=== PATIENT | female | born 1990 | race Caucasian/White ===

== ENCOUNTER → 2018-06-27 18:09 | Outpatient (CLI) | payer SELFPAY | PROVIDERS: PCP Family Medicine; Visit Provider Physician Assistant | DX: Z00.8 Encounter for other general examination (principal) ==

== ENCOUNTER → 2019-09-21 18:02 | Outpatient (CLI) | payer MEDICAID, SELFPAY | PROVIDERS: Visit Provider Nurse Practitioner Obstetrics & Gynecology | DX: N39.0 Urinary tract infection, site not specified (principal) | CPT/HCPCS: 87086; 87088; 87186 ==

== ENCOUNTER 2020-11-10 16:34 | Emergency (ER) | payer MEDICAID, SELFPAY ==
[2020-11-10] VITALS (7 sets, daily range): BP systolic 122–171; BP diastolic 77–108; PULSE 77–101; RESP 16–20; TEMP 37–37.7; O2SAT 95–99; BMI 33.9
--- NOTE | 2020-11-10 16:33 | ECG_ITS ---
APPROVED REPORT Exam: Resting ECG HR:96 bpm ECG Measurements Heart Rate [address] 172 P 41 QRSd 88 QRS 23 QT 350 T 18 QTc 442 Conclusion Normal sinus rhythm Left atrial abnormality Borderline ECG Electronically signed by : Zay Bhatt, 11/12/2020 15:22:45
--- NOTE | 2020-11-10 16:36 | XR_ITS ---
PROCEDURE INFORMATION: Exam: XR Chest Exam date and time: 11/10/2020 4:36 PM Age: 30 years old Clinical indication: Radiating; Patient HX: Chest pain and left shoulder pain TECHNIQUE: Imaging protocol: XR of the chest. Views: 2 views. COMPARISON: CR CXR CHEST(2 VIEWS-NOT PORTABLE) 12/05/2016 3:15 PM FINDINGS: Lungs: Unremarkable. No consolidation. Pleural spaces: Unremarkable. No pleural effusion. No pneumothorax. Heart/Mediastinum: Unremarkable. No cardiomegaly. Bones/joints: Unremarkable. IMPRESSION: No acute findings.
--- NOTE | 2020-11-10 16:42 | PC.NURSE ---
Blood sent to lab at this time
[2020-11-10 16:48] LABS: Basophils # 0.2 K/mm3 (0-0.2); Basophils % 1.5 % (0.1-2.0); Eosinophils # 0.7 K/mm3 (0.0-0.4); Eosinophils % 6.4 % (0.1-12.0); Hematocrit 44.4 % (37.0-47.0); Lymphocytes # 1.9 K/mm3 (0.7-4.5); Lymphocytes % 17.1 % (10-50); Mean Corpuscular HGB Conc 33.8 g/dL (31.8-35.4); Mean Corpuscular Hemoglobin 30.2 pg (27.0-31.2); Mean Corpuscular Volume 89.4 fl (81-99); Mean Platelet Volume 8.4 fl (7.4-10.4); Monocytes # 0.5 K/mm3 (0.1-1.0); Neutrophils # 7.9 K/mm3 (1.8-7.8); Neutrophils % 70.9 % (37.0-80.0); Platelet Count 315 K/mm3 (142-424); Red Blood Count 4.96 M/mm3 (4.20-5.40); Red Cell Distribution Width 14.2 % (11.5-17.5); White Blood Count 11.1 K/mm3 (4.8-10.8)
[2020-11-10 16:51] LABS: Chloride 104 mmol/L (98-107)
[2020-11-10 16:52] LABS: Potassium 3.9 mmoL/L (3.5-5.1); Sodium 141 mmol/L (136-145)
[2020-11-10 16:55] LABS: Anion Gap 10.9 mEq/L (5-15); Blood Urea Nitrogen 11 mg/dl (7-17); Calcium 9.9 mg/dl (8.4-10.2); Carbon Dioxide 30 mmol/L (22.0-30.0); Creatinine Clearance Estimated 113 mL/min (50-200); Estimated Glomerular Filt Rate 59 ml/min (>60); GFR (African American) 71 ML/MIN (>60); Glucose 127 mg/dl (74-100)
[2020-11-10 17:08] LABS: Troponin I < 0.01 ng/ml (0.00-0.034)
--- NOTE | 2020-11-10 17:27 | PC.NURSE ---
Pt returned from x-ray
--- NOTE | 2020-11-10 17:54 | HMH.EDCP ---
ED Disposition Clinical Impression: Lightheadedness Disposition: Home, Self-Care Condition on Discharge: Good Instructions: DI for Dizziness-Nonvertigo Referrals: Provider,Referral, [Primary Care Provider] - - Critical Care Critical Care Time: No Attestation: On 11/10/20, the high probability of a clinically significant, sudden or life threatening deterioration of the following system(s) required my full and direct attention, intervention and personal management. The time I documented below is in addition to time spent performing reported procedures but includes the following listed in this critical care notation. Medical Decision Making - Medical Records Medical records reviewed: Yes: I reviewed the patient's medical records. - Porfirio Inquiry Pt receiving controlled substance: No Vital Signs: 11/10/20 16:34 11/10/20 16:39 11/10/20 17:00 Temperature 99.8 F H Temperature Source Oral Pulse Rate 84 86 Pulse Rate [Left Radial] 101 H Respiratory Rate 20 Blood Pressure 145/84 H 146/95 H Blood Pressure [Right Arm] 171/108 H Blood Pressure Mean 124 112 Blood Pressure Mean [Right Arm] 129 Blood Pressure Source [Right Arm] Automatic Cuff Blood Pressure Position [Right Arm] Sitting 02 Sat by Pulse Oximetry 99 98 98 Oxygen Delivery Method Room Air 11/10/20 17:30 11/10/20 18:00 11/10/20 18:30 Temperature Temperature Source Pulse Rate 84 82 77 Pulse Rate [Left Radial] Respiratory Rate Blood Pressure 129/77 128/84 122/79 Blood Pressure [Right Arm] Blood Pressure Mean 94 99 101 Blood Pressure Mean [Right Arm] Blood Pressure Source [Right Arm] Blood Pressure Position [Right Arm] 02 Sat by Pulse Oximetry 98 95 96 Oxygen Delivery Method - Lab Data Lab Results 11/10/20 16:38: WBC 11.1 H, RBC 4.96, Hgb 15.0, Hct 44.4, MCV 89.4, MCH 30.2, MCHC 33.8, RDW 14.2, Plt Count 315, MPV 8.4, Neut % (Auto) 70.9, Lymph % (Auto) 17.1, Crawford % (Auto) 4.0, Eos % (Auto) 6.4, Baso % (Auto) 1.5, Neut # (Auto) 7.9 H, Lymph # (Auto) 1.9, Crawford # (Auto) 0.5, Eos # (Auto) 0.7 H, Baso # (Auto) 0.2 11/10/20 16:38: Sodium 141, Potassium 3.9, Chloride 104, Carbon Dioxide 30, Anion Gap 10.9, BUN 11, Creatinine 1.10 H, Estimated Creat Clear 113, Estimated GFR 59, Est GFR ( Amer) 71, Glucose 127 H, Calcium 9.9, Troponin I < 0.01 Result diagrams: 11/10/20 16:38 11/10/20 16:38 Orders (Tests/Meds): ORDERS Category Date Time Status Troponin I Q3H Lab 11/10/20 19:45 Ordered Troponin I Q3H Lab 11/10/20 22:45 Ordered - Radiology Data #1 Image(s): Chest Image Reviewed: Yes I reviewed the patient's radiology results, Yes I reviewed the patient's radiology image, Yes I have reviewed radiologist's interpretation Preliminary Findings: Normal/NAD - ECG Data Tracing #1 No ventricular rate at 96 bpm, WI interval 172 ms, normal QTC. Sinus rhythm with no specific ST changes ECG initial impression date: 11/10/20 ECG initial impression time: 16:33 - Reevaluation(s) Time: 18:38 Reevaluation #1: On reevaluation, patient is feeling much better. Repeat neurologic exam is normal. Patient symptoms are consistent with near syncope. Patient needs follow-up with PCP. Given strict return precautions. Verbalized understanding. Medical Decision Narrative: 30-year-old female presented to the emergency department with some dizziness. Patient has normal neurologic exam at this time. Is been no seizure-like activity. Work-up will be initiated. Chest Pain HPI - General Chief Complaint: Chest Pain Stated Complaint: chest pain Time Seen by Provider: 11/10/20 16:40 Mode of Arrival: Ambulatory Limitations: No Limitations Description of Symptoms (Recalled from ER Triage Doc. by RN): c/o dizziness and chest pain. States that she had dizziness a month ago and it got better but it is back with a her feeling that her heart is racing and fingers are tingling. - History of Pre
== END 2020-11-10 19:12 | disposition home or self-care (01) ==
PROVIDERS: Emergency Provider Emergency Medicine
DX: R07.9 Chest pain, unspecified (principal); R42 Dizziness and giddiness
CPT/HCPCS: 71046; 80048; 84484; 85025; 93005; 99283

== ENCOUNTER → 2021-05-03 16:22 | Outpatient (CLI) | payer MEDICAID, SELFPAY | PROVIDERS: Visit Provider Nurse Practitioner | DX: U07.1 COVID-19 (principal) | CPT/HCPCS: C9803; U0003; U0005 ==

== ENCOUNTER 2021-05-06 17:13 | Emergency (ER) | payer MEDICAID, SELFPAY ==
[2021-05-06 17:14] VITALS: BP 158/96; PULSE 113; RESP 14; TEMP 36.9; O2SAT 98; BMI 33.9
--- NOTE | 2021-05-06 18:58 | HMH.EDGENADL ---
ED Disposition <RubinayordykoltonCarmen - Last Filed: 05/06/21 21:51> Condition on Discharge: Good - Critical Care Critical Care Time: No <Effie Telles - Last Filed: 05/06/21 22:15> Clinical Impression: COVID-19 Headache Qualifiers: Headache type: tension-type Headache chronicity pattern: acute headache Intractability: not intractable Qualified Code(s): G44.209 - Tension-type headache, unspecified, not intractable Nausea & vomiting Qualifiers: Vomiting type: unspecified Qualified Code(s): R11.2 - Nausea with vomiting, unspecified Disposition: Home, Self-Care Prescriptions: Ondansetron [Zofran 4mg ODT] 4 mg PO BIDP PRN #10 tab PRN Reason: Nausea Transmission Status: Pending to [id number] Referrals: Kevin Terrell [Primary Care Provider] - Attestation: On 05/06/21, the high probability of a clinically significant, sudden or life threatening deterioration of the following system(s) required my full and direct attention, intervention and personal management. The time I documented below is in addition to time spent performing reported procedures but includes the following listed in this critical care notation. Medical Decision Making - Medical Records Medical records reviewed: Yes: I reviewed the patient's medical records. - Porfirio Inquiry Pt receiving controlled substance: No - Lab Data Lab results reviewed: Yes: I reviewed the patient's lab results. Result diagrams: 05/06/21 18:44 05/06/21 18:44 <RubinaCarmen zacarias - Last Filed: 05/06/21 21:51> - Lab Data Result diagrams: 05/06/21 18:44 05/06/21 18:44 <Effie Telles - Last Filed: 05/06/21 22:15> Vital Signs: 05/06/21 17:14 05/06/21 19:30 05/06/21 20:00 Temperature 98.5 F Temperature Source Oral Pulse Rate 92 H 89 Pulse Rate [Right Radial] 113 H Respiratory Rate 14 Blood Pressure 146/82 H 142/88 H Blood Pressure [Right Arm] 158/96 H Blood Pressure Mean [Right Arm] 116 Blood Pressure Source [Right Arm] Automatic Cuff Blood Pressure Position [Right Arm] Sitting 02 Sat by Pulse Oximetry 98 100 100 Oxygen Delivery Method Room Air Room Air Room Air 05/06/21 21:00 Temperature Temperature Source Pulse Rate 98 H Pulse Rate [Right Radial] Respiratory Rate Blood Pressure 145/88 H Blood Pressure [Right Arm] Blood Pressure Mean [Right Arm] Blood Pressure Source [Right Arm] Blood Pressure Position [Right Arm] 02 Sat by Pulse Oximetry 99 Oxygen Delivery Method Room Air - Lab Data Lab Results 05/06/21 18:44: WBC 5.4, RBC 4.53, Hgb 13.7, Hct 42.6, MCV 94.0, MCH 30.3, MCHC 32.2, RDW 14.4, Plt Count 213, MPV 8.6, Neut % (Auto) 81.7 H, Lymph % (Auto) 6.6 L, Johnston % (Auto) 8.5, Eos % (Auto) 1.3, Baso % (Auto) 2.0, Neut # (Auto) 4.4, Lymph # (Auto) 0.4 L, Johnston # (Auto) 0.5, Eos # (Auto) 0.1, Baso # (Auto) 0.1 05/06/21 18:44: Sodium 137, Potassium 3.5, Chloride 107, Carbon Dioxide 23, Anion Gap 10.5, BUN 8, Creatinine 0.90, Estimated Creat Clear 137, Estimated GFR 74, Est GFR ( Amer) 89, Glucose 85, Calcium 9.0, Magnesium 1.7, Total Bilirubin 0.2, AST 27, ALT 22, Alkaline Phosphatase 37 L, Total Protein 6.6, Albumin 4.0, Globulin 2.6, Albumin/Globulin Ratio 1.5 05/06/21 19:22: Urine Color Yellow, Urine Appearance Clear, Urine pH 6.0, Ur Specific [place] >= 1.030, Urine Protein Trace, Urine Glucose (UA) Negative, Urine Ketones Negative, Urine Blood Negative, Urine Nitrate Negative, Urine Bilirubin 1+ A, Urine Urobilinogen 0.2, Ur Leukocyte Esterase Negative, Urine RBC None, Urine WBC None, Ur Squamous Epith Cells 3-5, Urine Bacteria Trace Orders (Tests/Meds): ED MEDICATIONS Generic Name Dose Route Start Last Admin Trade Name Freq PRN Reason Stop Dose Admin Lactated Ringer's 500 mls @ 999 mls/hr 05/06/21 18:15 05/06/21 18:58 Lactated Ringer's 1000 Ml Bag IV 05/06/21 18:45 999 mls/hr .Q31M REGINALD Administration Discontinued Medications Generic Name Dose Route Start Last Admin Trade Na
[2021-05-06 19:06] LABS: Chloride 107 mmol/L (98-107); Potassium 3.5 mmoL/L (3.5-5.1); Sodium 137 mmol/L (136-145)
[2021-05-06 19:08] LABS: Alanine Aminotransferase 22 U/L (12-78); Aspartate Amino Transferase 27 U/L (14-36); Basophils # 0.1 K/mm3 (0-0.2); Blood Urea Nitrogen 8 mg/dl (7-17); Creatinine Clearance Estimated 137 mL/min (50-200); Eosinophils # 0.1 K/mm3 (0.0-0.4); Eosinophils % 1.3 % (0.1-12.0); Estimated Glomerular Filt Rate 74 ml/min (>60); GFR (African American) 89 ML/MIN (>60); Hematocrit 42.6 % (37.0-47.0); Hemoglobin 13.7 g/dL (12.2-16.2); Lymphocytes # 0.4 K/mm3 (0.7-4.5); Lymphocytes % 6.6 % (10-50); Mean Corpuscular HGB Conc 32.2 g/dL (31.8-35.4); Mean Corpuscular Hemoglobin 30.3 pg (27.0-31.2); Mean Platelet Volume 8.6 fl (7.4-10.4); Monocytes # 0.5 K/mm3 (0.1-1.0); Monocytes % 8.5 % (1.7-9.3); Neutrophils # 4.4 K/mm3 (1.8-7.8); Neutrophils % 81.7 % (37.0-80.0); Platelet Count 213 K/mm3 (142-424); Red Blood Count 4.53 M/mm3 (4.20-5.40); Red Cell Distribution Width 14.4 % (11.5-17.5); White Blood Count 5.4 K/mm3 (4.8-10.8)
[2021-05-06 19:09] LABS: Albumin/Globulin Ratio 1.5 (1.1-1.8); Alkaline Phosphatase 37 U/L (38-126); Anion Gap 10.5 mEq/L (5-15); Bilirubin,Total 0.2 mg/dl (0.2-1.3); Carbon Dioxide 23 mmol/L (22.0-30.0); Globulin 2.6 g/dL (1.3-3.2); Glucose 85 mg/dl (74-100); Magnesium 1.7 mg/dl (1.6-2.3); Total Protein,Serum 6.6 g/dl (6.3-8.2)
[2021-05-06 19:30] VITALS: BP 146/82; PULSE 92; O2SAT 100
[2021-05-06 19:32] LABS: Microscopic, Urine URINE MICROSCOPIC (MICROSCOPIC)
[2021-05-06 19:34] LABS: Appearance,Urine CLEAR (Clear); Bilirubin,Urine 1+ (Negative); Blood, Urine Negative (Negative); Color,Urine YELLOW (Yellow); Glucose,Urine (UA) Negative (Negative); Ketones,Urine Negative (Negative); Leukocyte Esterase,Urine Negative (Negative); Nitrate,Urine Negative (Negative); Protein,Urine TRACE (Negative); Specific Gravity, Urine >= 1.030 (1.005-1.030); Urobilinogen,Urine 0.2 EU/dl (0.2)
[2021-05-06 19:47] LABS: Bacteria,Urine Trace /lpf
[2021-05-06 20:00] VITALS: BP 142/88; PULSE 89; O2SAT 100
[2021-05-06 21:00] VITALS: BP 145/88; PULSE 98; O2SAT 99
[2021-05-06 22:25] VITALS: BP 134/78; PULSE 95; RESP 16; TEMP 37.2; O2SAT 100
== END 2021-05-06 22:30 | disposition home or self-care (01) ==
PROVIDERS: Emergency Provider Emergency Medicine; PCP Internal Medicine
DX: O98.511 Other viral diseases complicating pregnancy, first trimester (principal); U07.1 COVID-19
CPT/HCPCS: 80053; 81001; 83735; 85025; 96365; 96376; 99282

== ENCOUNTER → 2021-06-10 08:05 | Outpatient (CLI) | payer MEDICAID, SELFPAY ==
--- NOTE | 2021-06-10 08:10 | MR_ITS ---
FINAL REPORT CLINICAL HISTORY: pt is 13 weeks with migraines and dizziness. she states an off feeling and unsteady balance. FINDINGS: MR BRAIN WITHOUT CONTRAST Multiplanar MR imaging of the brain was performed without contrast. [There is no evidence of intracranial hemorrhage or mass.] [ The ventricular size is normal.] [There is no evidence of shift of the midline structures.] [ No area of restricted diffusion is identified.] [ The posterior fossa and brainstem have an unremarkable appearance.] [Normal major vessel vascular flow voids are seen.] [ ] IMPRESSION: [Unremarkable brain with no focal abnormality identified.] Reviewed, Interpreted and Dictated by Francois Aparicio MD Transcribed by Minnie Lindsey Authenticated by Francois Aparicio MD on 06/12/2021 09:56:05 AM [facility]
== END ==
PROVIDERS: PCP Internal Medicine; Visit Provider Specialist
DX: G43.709 Chronic migraine without aura, not intractable, without status migrainosus (principal); R11.2 Nausea with vomiting, unspecified; R42 Dizziness and giddiness
CPT/HCPCS: 70551

== ENCOUNTER 2021-06-27 16:49 | Outpatient (RCR) | payer MEDICAID, SELFPAY ==
--- NOTE | 2021-06-27 18:00 | HMH.PTOPEV ---
PT Outpatient Evaluation Rehab PT Outpatient Evaluation Start: 06/27/21 17:39 Freq: Status: Active Protocol: Document 06/27/21 17:39 ERINN (Rec: 06/27/21 17:58 ERINN [id number]) Electronically Signed By Jamison Mccartney, PT 06/27/21 17:39 Outpatient Therapy Subjective History Subjective History Patient is a 31 year old female presenting to outpatient PT with reports of chronic cervical spine pain with associated migraines starting 09/2020. Most recent imaging negative. Patient reports symptoms occurr daily and intermittently. She reports associated dizziness and seeing spots with symptom onset. No other comorbidities to report. Chief Complaint Pain Symptom Type Throb,Sharp Symptoms Relieved By Rest/Positioning,Heat,OTC Meds Prior Functional Limitations None Current Functional Limitations Housework,Driving,Sitting Symptom Description Intermittent Level of pain today (0-10) 0 Pain scale - at its best (0-10) 0 Pain scale - at its worst (0-10) 5 Cervical Eval Palpation Cervical Muscles R Suboccipital,L Suboccipital, R Upper Trapezius,L Upper Trapezius Cervical/Thoracic Palpation Findings Tenderness Posture Head/C-Spine Posture Sitting Position C-Spine Flattened Head/C-Spine Posture Standing Position C-Spine Flattened Flexibility Deficits Upper Trapezius Muscle Length (R) Moderate Tightness,(L) Moderate Tightness Passive Joint Mobility Cervical PIVM WNL: R OA L OA R AA L AA R C2/3 L C2/3 R C3/4 L C3/4 R C4/5 L C4/5 R C5/6 L C5/6 R C6/7 L C6/7 R C7/T1 L C7/T1 AROM Cervical Spine Extension Active Range of WNL Motion (degrees) Cervical Spine Flexion Active Range of WNL Motion (degrees) Cervical Spine Right Lateral Flexion 30 Active Range of Motion (degrees)
== END 2021-06-27 16:50 | disposition home or self-care (01) ==
LOC: PT 16:49
PROVIDERS: PCP Internal Medicine; Visit Provider Specialist
DX: R51.9 Headache, unspecified (principal); R42 Dizziness and giddiness
CPT/HCPCS: 97163

== ENCOUNTER → 2021-07-18 10:42 | Outpatient (CLI) | payer MEDICAID, SELFPAY ==
[2021-07-18 11:17] LABS: Basophils # 0.1 K/mm3 (0-0.2); Basophils % 0.4 % (0.1-2.0); Eosinophils # 0.1 K/mm3 (0.0-0.4); Eosinophils % 1.2 % (0.1-12.0); Hematocrit 41.1 % (37.0-47.0); Hemoglobin 13.6 g/dL (12.2-16.2); Lymphocytes # 1.5 K/mm3 (0.7-4.5); Mean Corpuscular HGB Conc 33.2 g/dL (31.8-35.4); Mean Corpuscular Hemoglobin 31.2 pg (27.0-31.2); Mean Platelet Volume 9.2 fl (7.4-10.4); Monocytes # 0.4 K/mm3 (0.1-1.0); Monocytes % 3.5 % (1.7-9.3); Neutrophils # 8.9 K/mm3 (1.8-7.8); Neutrophils % 80.9 % (37.0-80.0); Platelet Count 263 K/mm3 (142-424); Red Blood Count 4.37 M/mm3 (4.20-5.40); Red Cell Distribution Width 14.2 % (11.5-17.5)
[2021-07-19 08:23] LABS: HIV Screen 4th Generation wRfx Non Reactive (Non Reactive)
[2021-07-19 09:14] LABS: HSV 1 IgG, Type Spec <0.91 index (0.00-0.90); HSV 2 IgG, Type Spec <0.91 index (0.00-0.90); Rubella Antibodies, IgG <0.90 index (Immune >0.99)
[2021-07-19 10:13] LABS: Hepatitis B Surface Antigen Negative (Negative); Hepatitis C Antibody 0.1 s/co ratio (0.0-0.9)
[2021-07-19 13:49] LABS: Rapid Plasma Reagin Ab Titer Non Reactive (NonRea<1:1)
== END ==
PROVIDERS: Visit Provider Nurse Practitioner Obstetrics & Gynecology
DX: Z34.90 Encounter for supervision of normal pregnancy, unspecified, unspecified trimester (principal)
CPT/HCPCS: 36415; 85025; 86592; 86695; 86703; 86762; 86790; 86850; 87340; 87380; G0432

== ENCOUNTER → 2021-08-01 13:51 | Outpatient (CLI) | payer MEDICAID, SELFPAY ==
--- NOTE | 2021-08-01 13:54 | US_ITS ---
FINAL REPORT CLINICAL HISTORY: 20 weeks gestation FINDINGS: There is a single live intrauterine gestation. Presentation is breech. The cervix is closed and measures 3.5 cm. Placenta is posterior grade 1. movement is noted. Heart rate is 142 beats per minute. Three-vessel cord with satisfactory umbilical cord insertion. MEASUREMENTS: ULTRASOUND AGE: 20 weeks 0 days. GESTATION AGE: 20 weeks 4 days. ESTIMATED WEIGHT: 337 g GROWTH PERCENTILE: 25% % BPD: 4.52 cm consistent with 19 weeks 5 days. OFD: 5.86 cm consistent with 20 weeks 1 day. HC: 16.44 cm consistent with 19 weeks 2 days. AC: 15.31 cm consistent with 20 weeks 4 days. FL: 3.23 cm consistent with 20 weeks 1 days. CEREBELLUM: 2.04 cm consistent with 20 weeks 5 days. HUMERUS: 3.13 cm consistent with 20 weeks 3 days. HC/AC: 1.07 CI: 77% FL/BPD: 71% FL/AC: 21% IMPRESSION: No gross anomalies. Reviewed, Interpreted and Dictated by Francois Aparicio MD Transcribed by Nunu Toledo Authenticated by Francois Aparicio MD on 08/02/2021 10:12:[address] [facility]
== END ==
PROVIDERS: PCP Internal Medicine; Visit Provider Nurse Practitioner Obstetrics & Gynecology
DX: Z36.0 Encounter for antenatal screening for chromosomal anomalies (principal); Z3A.20 20 weeks gestation of pregnancy
CPT/HCPCS: 76811

== ENCOUNTER 2021-11-18 00:04 | Outpatient (CLI) | payer MEDICAID, SELFPAY ==
[2021-11-18 00:16] VITALS: BMI 36.4
[2021-11-18 00:17] VITALS: BP 139/73; PULSE 97; RESP 18; TEMP 36.5; O2SAT 95; BMI 36.4
[2021-11-18 00:25] LABS: Microscopic, Urine URINE MICROSCOPIC (MICROSCOPIC)
[2021-11-18 00:27] LABS: Appearance,Urine CLEAR (Clear); Bilirubin,Urine Negative (Negative); Blood, Urine Negative (Negative); Color,Urine YELLOW (Yellow); Glucose,Urine (UA) Negative (Negative); Ketones,Urine Negative (Negative); Leukocyte Esterase,Urine Negative (Negative); Nitrate,Urine Negative (Negative); PH,Urine 6.5 (5.0-8.5); Protein,Urine Negative (Negative); Urobilinogen,Urine 0.2 EU/dl (0.2)
[2021-11-18 00:33] LABS: Bacteria,Urine 1+ /lpf; RBC,Urine Occasional #/hpf (0-3)
[2021-11-18 00:39] LABS: Barbiturates Screen,Urine Negative ng/ml (<200); Benzodiazepines Screen,Urine Negative ng/ml (<200)
[2021-11-18 00:40] LABS: Amphetamine/Metha Screen,Urine Negative ng/ml (<1000); Cannabinoid Screen,Urine Negative ng/ml (<50)
[2021-11-18 00:41] LABS: Cocaine Screen,Urine Negative ng/ml (<300)
[2021-11-18 00:42] LABS: Methadone Screen,Urine Negative ng/ml (<300); Opiate Screen,Urine Negative ng/ml (<300)
[2021-11-18 00:43] LABS: Phencyclidine Screen,Urine Negative ng/ml (<25)
== END 2021-11-18 05:00 | disposition home or self-care (01) ==
LOC: OBOUT 00:05 → OB 00:07
PROVIDERS: PCP Internal Medicine; Visit Provider Nurse Practitioner Obstetrics & Gynecology
DX: O47.03 False labor before 37 completed weeks of gestation, third trimester (principal); Z3A.36 36 weeks gestation of pregnancy
CPT/HCPCS: 59025; 80305; 81001; 96365; 96366; G0463

== ENCOUNTER → 2021-11-21 06:08 | Outpatient (CLI) | payer MEDICAID, SELFPAY | PROVIDERS: Visit Provider Nurse Practitioner Obstetrics & Gynecology | DX: Z34.90 Encounter for supervision of normal pregnancy, unspecified, unspecified trimester (principal) | CPT/HCPCS: 86403 ==

== ENCOUNTER → 2021-11-21 08:08 | Outpatient (CLI) | payer MEDICAID, SELFPAY ==
[2021-11-21 09:12] LABS: Basophils # 0.1 K/mm3 (0-0.2); Basophils % 0.6 % (0.1-2.0); Eosinophils # 0.3 K/mm3 (0.0-0.4); Hemoglobin 12.3 g/dL (12.2-16.2); Lymphocytes # 2.1 K/mm3 (0.7-4.5); Lymphocytes % 15.5 % (10-50); Mean Corpuscular HGB Conc 32.4 g/dL (31.8-35.4); Mean Corpuscular Hemoglobin 31.2 pg (27.0-31.2); Mean Corpuscular Volume 96.1 fl (81-99); Mean Platelet Volume 9.2 fl (7.4-10.4); Monocytes % 7.2 % (1.7-9.3); Neutrophils # 10.2 K/mm3 (1.8-7.8); Neutrophils % 74.7 % (37.0-80.0); Platelet Count 364 K/mm3 (142-424); Red Blood Count 3.95 M/mm3 (4.20-5.40); Red Cell Distribution Width 13.7 % (11.5-17.5); White Blood Count 13.6 K/mm3 (4.8-10.8)
[2021-11-21 09:18] LABS: D-Dimer 1.34 ug/mL (0.0-0.5)
[2021-11-21 09:51] LABS: Activated Partial Thrombo Time 23.5 seconds (22.8-30.6); Fibrinogen 444 mg/dL (229.9-363.5); INR 0.89 (0.9-1.1); Prothrombin Time 10.1 seconds (10.1-12.5)
[2021-11-21 10:33] LABS: Alanine Aminotransferase 11 U/L (12-78); Anion Gap 10.5 mEq/L (5-15); Aspartate Amino Transferase 19 U/L (14-36); Blood Urea Nitrogen 7 mg/dl (7-17); Calcium 9.7 mg/dl (8.4-10.2); Carbon Dioxide 22 mmol/L (22.0-30.0); Chloride 106 mmol/L (98-107); Estimated Glomerular Filt Rate 117 ml/min (>60); GFR (African American) 142 ML/MIN (>60); Glucose 84 mg/dl (74-100); Potassium 4.5 mmoL/L (3.5-5.1); Sodium 134 mmol/L (136-145); Uric Acid 4.4 mg/dl (2.5-6.2)
== END ==
PROVIDERS: PCP Internal Medicine; Visit Provider Nurse Practitioner Obstetrics & Gynecology
DX: Z34.90 Encounter for supervision of normal pregnancy, unspecified, unspecified trimester (principal)
CPT/HCPCS: 80048; 84450; 84460; 84550; 85025; 85378; 85384; 85610; 85730

== ENCOUNTER → 2021-11-22 16:17 | Outpatient (CLI) | payer MEDICAID, SELFPAY ==
[2021-11-22 17:59] LABS: Collection Time,Urine 24 hours; Total Volume,Urine 1600 mL (600-1600)
[2021-11-22 18:11] LABS: Creatinine 24 Hour,Urine 1648 mg/24hr (630-2500); Total Protein 24 Hour,Urine 288 mg/24 hr (40-90)
[2021-11-22 18:15] LABS: Creatinine,Urine Random 103 mg/dL (Not Estab.)
[2021-11-22 20:15] LABS: Patient Height,Urine 62 inches; Patient Weight,Urine 225 lbs
[2021-11-22 20:29] LABS: Creatinine Clearance Urine 190.7 mL/min (25-115)
== END ==
PROVIDERS: PCP Internal Medicine; Visit Provider Nurse Practitioner Obstetrics & Gynecology
DX: Z34.90 Encounter for supervision of normal pregnancy, unspecified, unspecified trimester (principal)
CPT/HCPCS: 82575; 84155

== ENCOUNTER 2021-11-25 18:59 | Inpatient (IN) | payer MEDICAID, SELFPAY ==
[2021-11-25 18:30] VITALS: BP 156/92; PULSE 121; RESP 19; TEMP 37.1; O2SAT 97; BMI 35.8
[2021-11-25 18:39] LABS: Microscopic, Urine URINE MICROSCOPIC (MICROSCOPIC)
[2021-11-25 18:42] LABS: Appearance,Urine CLEAR (Clear); Blood, Urine Negative (Negative); Color,Urine DK YELLOW (Yellow); Glucose,Urine (UA) Negative (Negative); Ketones,Urine 1+ (Negative); Leukocyte Esterase,Urine Negative (Negative); Nitrate,Urine Negative (Negative); Protein,Urine TRACE (Negative); Specific Gravity, Urine 1.025 (1.005-1.030)
[2021-11-25 18:43] LABS: Bilirubin,Urine 1+ (Negative)
[2021-11-25 18:53] LABS: Bacteria,Urine 1+ /lpf
[2021-11-25 18:54] LABS: Amphetamine/Metha Screen,Urine Negative ng/ml (<1000); Barbiturates Screen,Urine Negative ng/ml (<200)
[2021-11-25 18:55] LABS: Benzodiazepines Screen,Urine Negative ng/ml (<200)
[2021-11-25 18:56] LABS: Cannabinoid Screen,Urine Negative ng/ml (<50); Cocaine Screen,Urine Negative ng/ml (<300)
[2021-11-25 18:57] LABS: Methadone Screen,Urine Negative ng/ml (<300)
[2021-11-25 18:58] LABS: Opiate Screen,Urine Negative ng/ml (<300); Phencyclidine Screen,Urine Negative ng/ml (<25)
--- NOTE | 2021-11-25 19:21 | HMH.OBAPHP ---
OB - H&P: HPI Antepartum - History of Present Illness Chief complaint: Headache, vision changes, contractions History of present illness: Mrs Elsie Tapia is a 31 yo at 37w0d, based on first trimester ultrasound, who presents to [facility] for regular contractions, headache and vision changes. She states headache started last night and was worse this morning. She took Tylenol this morning with no relief. She reports seeing spots. She states contractions started about 2 hours ago and have increased in frequency. Reports good movement. Denies leakage of fluid and vaginal bleeding. - History of Present Criteria for establishing EDC:: based on 1st trimester US only care: good care Ultrasounds: normal 1st trimester US, normal mid trimester US Obstetrical complications: preeclampsia, other (Chronic hypertension) - Labs Blood type: O (+) positive Rubella: nonimmune RPR/VDRL: nonreactive GBS status: negative HBsAG: negative [facility] History I have reviewed the patient's past medical history: Yes Medical History: Reports:: Anxiety, Hypertension, Migraine *Have you ever received a pneumonia vaccine?: No *Have you received a flu vaccine this season?: No Laterality Cases: Bilateral: Myringotomy (Ear Tubes) Other Surgeries: Yes: No Previous Surgery. No: Amputation: No Fractures: No - *Social History Smoking Status: Never smoker Alcohol Intake: never Alcohol Intake Frequency:: other Substance Use Type: denies use *Occupational Status:: employed Housing: house Household Members: children *Travel in the last 8 weeks: None Family Hx:: Diabetes : 3 Para: 2 Review of Systems - Review of Systems Review of systems:: pertinent systems reviewed and negative unless documented below - Constitutional Reports headache(s) - Eyes Reports change in vision - *Neurologic Reports headache(s), Reports other visual disturbances Meds Home Medications Medication Instructions Recorded Confirmed Type vit 122-ferrous fumarate tab PO 06/07/21 11/23/21 History 27 mg iron-folic acid 800 mcg tablet ferrous sulfate 325 mg (65 mg 325 mg PO DAILY #30 tab 07/18/21 11/23/21 Rx iron) tablet labetalol 100 mg tablet 100 mg PO BID #120 tab 07/18/21 11/23/21 Rx ondansetron 4 mg disintegrating 4 mg PO Q6H PRN #30 tab 07/18/21 11/23/21 Rx tablet hydroxyzine pamoate 25 mg capsule 25 mg PO TID #90 cap 09/12/21 11/23/21 Rx terconazole 0.8 % vaginal cream 1 appful VG HS 3 Days #20 g 11/06/21 11/23/21 Rx qhjiebndmt-ogtzvpqsgqoxl-jsyfnozd 1 cap PO Q12HP PRN #20 cap 11/23/21 11/23/21 Rx 50 mg-300 mg-40 mg capsule Allergies Allergy/AdvReac Type Severity Reaction Status Date / Time No Known Allergies Allergy Verified 11/23/21 10:18 OB - H&P: Exam - Physical Exam Vital signs: Temp Pulse Resp BP Pulse Ox 98.8 F 121 H 19 156/92 H 97 11/25/21 18:30 11/25/21 18:30 11/25/21 18:30 11/25/21 18:30 11/25/21 18:30 - Constitutional no acute distress - Routine HEENT Exam Head: Present: normocephalic Eye: Absent: conjunctivae pink ENT: Present: mucous membranes moist - Routine Respiratory Exam Present: CTA bilaterally - Routine Cardiovascular Exam Present: RRR - Routine Abdominal Exam Present: soft (Gravid). Absent: tenderness - Routine Extremities Exam Present: full ROM. Absent: edema, calf tenderness - Detailed Labor and Delivery Exam Dilation (cm): 2 Effacement (%): 40 Cervix position: anterior station: -3 Consistency: medium Membranes: artificially ruptured (with amnihoook at 1952, clear fuid noted) Amniotic fluid: clear Baseline heart rate: 140 monitor accelerations: Present monitor decelerations: Variable FPC variability: Moderate (11-25) Tachysystole: No OB - Results - Labs Labs: Urine 11/25/21 Range/Units 18:10 Urine Color Dk yellow (Yellow) Urine Appearanc
[2021-11-25 19:55] LABS: Basophils # 0.1 K/mm3 (0-0.2); Basophils % 0.4 % (0.1-2.0); Eosinophils # 0.2 K/mm3 (0.0-0.4); Eosinophils % 1.3 % (0.1-12.0); Hematocrit 39.1 % (37.0-47.0); Hemoglobin 12.7 g/dL (12.2-16.2); Lymphocytes # 2.4 K/mm3 (0.7-4.5); Mean Corpuscular HGB Conc 32.5 g/dL (31.8-35.4); Mean Corpuscular Hemoglobin 31.4 pg (27.0-31.2); Mean Corpuscular Volume 96.8 fl (81-99); Monocytes # 0.7 K/mm3 (0.1-1.0); Monocytes % 4.6 % (1.7-9.3); Neutrophils # 12.4 K/mm3 (1.8-7.8); Neutrophils % 78.7 % (37.0-80.0); Platelet Count 363 K/mm3 (142-424); Red Blood Count 4.04 M/mm3 (4.20-5.40); Red Cell Distribution Width 13.7 % (11.5-17.5); White Blood Count 15.7 K/mm3 (4.8-10.8)
[2021-11-25 19:56] LABS: Coronavirus 19, PCR Not Detected (NotDetected); Influenza A, PCR Not Detected (NotDetected); Influenza B, PCR Not Detected (NotDetected)
[2021-11-25 19:58] LABS: MANUAL DIFFERENTIAL MANUAL DIFFERENTIAL (MANUAL DIFF)
[2021-11-25 20:04] LABS: Chloride 104 mmol/L (98-107); Potassium 3.6 mmoL/L (3.5-5.1); Sodium 134 mmol/L (136-145)
[2021-11-25 20:06] LABS: Blood Urea Nitrogen 8 mg/dl (7-17); Creatinine Clearance Estimated 187 mL/min (50-200); Estimated Glomerular Filt Rate 98 ml/min (>60)
[2021-11-25 20:07] LABS: Alanine Aminotransferase 19 U/L (12-78); Albumin/Globulin Ratio 1.3 (1.1-1.8); Alkaline Phosphatase 148 U/L (38-126); Anion Gap 12.6 mEq/L (5-15); Aspartate Amino Transferase 24 U/L (14-36); Bilirubin,Total 0.3 mg/dl (0.2-1.3); Calcium 10.2 mg/dl (8.4-10.2); Carbon Dioxide 21 mmol/L (22.0-30.0); GFR (African American) 119 ML/MIN (>60); Globulin 3.1 g/dL (1.3-3.2); Glucose 136 mg/dl (74-100); Lymphocytes % 10 % (10-50); Monocytes % 1 % (2-9); Neutrophils % 84 % (42-76); Platelet Estimate Normal; RBC Morphology Normal; Total Cells Counted 100; Total Protein,Serum 7.1 g/dl (6.3-8.2)
[2021-11-26] VITALS (7 sets, daily range): BP systolic 131–156; BP diastolic 73–91; PULSE 76–87; RESP 16–18; TEMP 36.3–37.2; O2SAT 98–100
--- NOTE | 2021-11-26 07:03 | P.PN_ITS ---
[facility] Anesthesia Checklist - Patient Identification Patient Identification: Arm Band - Structural Data Admitted From: Inpatient Planned Operative Procedure/s: labor epidural Consent for Planned Operative Procedure(s) Verified: Yes Verified Documents: Surgical Consent, History and Physical - NPO Status Verified Time NPO: 00:00 - Additional verifications Anesthesia Reactions: No - Airway Assessment C-Spine Mobility Assessed: Yes TMJ Mobility Assessed: Yes Dentition: Good Dentition - Neurological Assessment Level of Consciousness: Awake, Alert - Anesthesia Plan Anesthesia Risk discussed: Yes Anesthesia Plan: Verified ASA Class: II Anesthesia Type: Epidural [facility] History I have reviewed the patient's past medical history: Yes Medical History: Reports:: Anxiety, Hypertension, Migraine *Have you ever received a pneumonia vaccine?: No *Have you received a flu vaccine this season?: No Anesthesia experience/problems:: nac Laterality Cases: Bilateral: Myringotomy (Ear Tubes) Other Surgeries: Yes: No Previous Surgery. No: Amputation: No Fractures: No - *Social History Smoking Status: Never smoker Alcohol Intake: never Alcohol Intake Frequency:: other Substance Use Type: denies use *Occupational Status:: employed Housing: house Household Members: children *Travel in the last 8 weeks: None - Psychiatric History Pschychiatric History:: Reports:: Anxiety Family Hx:: Diabetes Para: 2
--- NOTE | 2021-11-26 08:15 | HMH.LABNOT ---
Labor Note - Subjective: Date: 11/26/21 Time: 08:15 irregular contractions (q 2-6 minutes) - Objective: NST:: Reactive Cervical Dilation:: 4-5 Effacement:: 50% Station: -2 Membranes: artificially ruptured Comment:: Category 2 Baseline 130 bpm, moderate variability, accelerations presents and intermittent decelerations present - Fetus: Monitoring?: Yes monitoring type:: Combination - Assessment: Labor progressing?: No Patient Problems: All Active Problems 37 weeks gestation of (Acute) Chronic hypertension with superimposed preeclampsia (Acute) Rubella non-immune status, antepartum (Acute) Migraines (Acute) Anxiety (Acute) Chronic hypertension affecting (Acute) (Acute) - Plan: Continue to monitor?: Yes Comment:: IUPC inserted without difficulty. Pitocin is at 15 mu. Cervical exam unchanged since 2300 last night, 11/25/21. 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 Continue close monitoring. Discussed possibility of secondary to failure to progress/ dystocia of labor.
--- NOTE | 2021-11-26 09:10 | PC.NURSE ---
0907- Paged Surgery team for c section [phone]- Paged Dr De La Torre for assist on section [phone] Dr De La Torre returned call [phone] Francisco returned call [phone] Mickie returned call [phone] red returned call
--- NOTE | 2021-11-26 09:14 | HMH.LABNOT ---
Labor Note - Subjective: Date: 11/26/21 Time: 09:14 regular contraction Comment:: comfortable with epidural - Objective: NST:: Reactive (Contractions every 2-4 minutes) Cervical Dilation:: 4-5 Effacement:: 50% Station: -2 Membranes: artificially ruptured Comment:: Category 2 baseline 130 bpm, moderate variability, + accelerations, + intermittent variable decelerations - Fetus: Monitoring?: Yes monitoring type:: Combination Comment:: IUPC in place - Assessment: Labor progressing?: No Patient Problems: All Active Problems 37 weeks gestation of (Acute) Chronic hypertension with superimposed preeclampsia (Acute) Rubella non-immune status, antepartum (Acute) Migraines (Acute) Anxiety (Acute) Chronic hypertension affecting (Acute) (Acute) - Plan: Plan for ?: Yes Comment:: MVU demonstrated adequate labor contractions No cervical change attendant 10 hours caput noted on most recent exam Discussed failure to progress To OR for primary secondary to failure to progress Discussed risks, benefits, alternatives, expectations and possible complications. All questions addressed and answered. Patient voiced understanding of risks and possible complications. Consent form signed.
--- NOTE | 2021-11-26 10:07 | P.CONPHA_ITS ---
[facility] Pharmacy VTE Monitoring - Patient Demographics Admission date: 11/25/21 Report Date: 11/26/21 Time: 10:07 Allergies/Adverse Reactions: Patient Allergies No Known Allergies Allergy (Verified 11/23/21 10:18) Height: 1.68 m Weight: 100.698 kg Patient Problems: Current Active Problems 37 weeks gestation of (Acute) Chronic hypertension with superimposed preeclampsia (Acute) Rubella non-immune status, antepartum (Acute) Migraines (Acute) Anxiety (Acute) - VTE Risk Labs: VTE Related Lab Results Hgb 12.7 g/dL (12.2-16.2) 11/25/21 19:45 Hct 39.1 % (37.0-47.0) 11/25/21 19:45 Plt Count 363 K/mm3 (142-424) 11/25/21 19:45 BUN 8 mg/dl (7-17) 11/25/21 19:45 Creatinine 0.70 mg/dl (0.52-1.04) 11/25/21 19:45 Estimated Creat Clear 187 mL/min (50-200) 11/25/21 19:45 Was VTE Risk Assessment Performed: No Clinical Trial Participant: No - Prophylaxis VTE Prophylaxis Ordered?: Yes Types of VTE Prophylaxis: TEDS Knee High Location of Applied Device: Bilateral Lower Extremeties
--- NOTE | 2021-11-26 10:08 | HMH.PHAINT ---
MEDICATION RECONCILIATION COMPLETE USING MOST RECENT OB OFFICE VISIT NOTE AND EXTERNAL PHARMACY FILL HISTORY.
--- NOTE | 2021-11-26 11:11 | HMH.OPNOTE ---
Date of procedure: 11/26/21 Pre-op Diagnosis:: 1. 37 weeks gestation of 2. Chronic hypertension with superimposed preeclampsia 3. Rubella non-immune status, antepartum 4. Migraines 5. Anxiety 6. Failure to progress Post-op Diagnosis:: 1. 37 weeks gestation of 2. Chronic hypertension with superimposed preeclampsia 3. Rubella non-immune status, antepartum 4. Migraines 5. Anxiety 6. Failure to progress Procedure performed:: Primary low transverse section Surgeon:: Cecille Cano DO Doctor Of Audiology(s):: Adam De La Torre MD COURT REGISTRY OFFICER:: Francisco Carr Anesthesia: epidural Estimated blood loss (mL): 600 Clinical Note:: Mrs Elsie Tapia is a 31 yo at 37w0d, based on first trimester ultrasound, who presents to [facility] for regular contractions, headache and vision changes. She states headache started last night and was worse this morning. She took Tylenol this morning with no relief. She reports seeing spots. She states contractions started about 2 hours ago and have increased in frequency. Reports good movement. Denies leakage of fluid and vaginal bleeding. On admission cervical exam was 2/40/-3. Amniotomy was performed with clear fluid noted. She progressed to 4-5 cm dilated. At 2300 on 11/25/21 cervix was 4-5/70-2 per RN. Pitocin was started and reached 15 mu. She got an epidural. Repeat cervical exam this morning by physician was 4/50/-2. heart tracing was category 1, reactive. IUPC was inserted and contractions monitored for 1 hour. Adequate MVU noted. strip transitioned to category 2 with intermittent variable decelerations. Cervical exam unchanged. Decision was made to proceed with primary secondary to failure to progress. Operative findings:: 1. Uterus, bilateral fallopian tubes and ovaries grossly normal 2. Live female baby (baby's name is Joan) weighing 6 lbs 5 oz, with APGARs 9, 9 3. Nuchal cord x 2 4. True knot in the umbilical cord noted Operative note:: The risks, benefits and alternatives of the procedure were reviewed with the patient. Informed consent was obtained. Patient was taken to the operating room where epidural was bolused. The patient received 2 grams of Ancef preoperatively. Patient was placed in dorsal supine position with a leftward tilt. SCDs in place. Black catheter had been placed and was draining clear urine prior to the start of the procedure. heart tones were obtained. Patient was then prepped and draped in normal sterile fashion. Vagina was prepped with Betadine swabs x 3. Allis clamp test was performed to ensure adequate anesthesia. A Pfannenstiel skin incision was made 2 cm above pubic symphysis. This was carried through to underlying layer of fascia. Fascia was incised in midline, extended laterally with Turner scissors. Superior aspect of fascial incision was grasped with two Oren clamps, elevated up, and rectus muscle dissected off bluntly and sharply with Turner scissors. The retcus muscle was then in the midline and the peritoneum was entered bluntly with a digit. Peritoneal incision was then extended superiorly and inferiorly with good visualization of the bladder. Ramone retractor was inserted. Metzenbaum scissors were used on the vesicouterine peritoneum to create a bladder flap. The lower uterine segment was incised in a transverse fashion. Clear amniotic fluid was noted. Head was delivered without difficulty. Nuchal x 2 was easily reduced. Remainder of body was delivered without difficulty. Mouth and nares were bulb suctioned. Spontaneous cry was noted. Delayed cord clamping was performed for 60 seconds. The umbilical cord was clamped and cut. The infant was handed to awaiting pediatric staff in stable condition. Dr. Shine was present. Apgars were 9(1 min), 9(5 min). Cord blood was obtained. Gentle traction on the umbilical cord and uterine fundal massage delivered the placenta. Placenta was intact. Placenta will be sent to [facility]
--- NOTE | 2021-11-26 11:17 | HMH.ANESI ---
[facility] Anesthesia Record Part I Intake, IV Amount: 1,200 Estimated blood loss (mL): 600 Urine output (mL): 200 Blood Pressure: 131/84 SaO2: 99 Pulse Rate: 77 Respiratory Rate: 16 Temperature: 98.9 F Patient is:: Awake, Stable Stable to PACU at:: 11:10
--- NOTE | 2021-11-26 12:06 | SUR.PHASEI ---
Fundal massage performed [address] out of pacu at 1140, L Praful and Gómez Hsieh at beside and report given
[2021-11-27 02:50] VITALS: RESP 18
[2021-11-27 03:08] VITALS: RESP 18
[2021-11-27 06:38] LABS: Hematocrit 32.1 % (37.0-47.0); Hemoglobin 10.1 g/dL (12.2-16.2)
[2021-11-27 07:01] VITALS: RESP 18
--- NOTE | 2021-11-27 07:29 | HMH.ANESII ---
[facility] Anesthesia Record Part II Discharge Time: 11:40 Destination: Obstetric PACU nurse assessment reviewed?: Yes Patient Condition:: Good Anesthesia Complications:: None Swallowing reflex intact?: Yes Cyanosis?: No Blood Pressure: 156/91 Pulse Rate: 87 Temperature: 97.6 F Mental Status: Alert & Oriented Pain level:: 0 Nausea and/or vomitting:: None Intake, IV Amount: 0
[2021-11-27 07:30] VITALS: BP 156/91; PULSE 87; TEMP 36.4
--- NOTE | 2021-11-27 08:40 | HMH.ACPN2 ---
Internal Medicine - PN: Subj *Date: 11/27/21 *Time: 08:40 Interval history: She is 1 day postop from a section for failure to progress. She is doing very well. Her blood pressures are stable. Her pain is well controlled. Her hemoglobin is stable. Exam Vital signs and Labs for Last 24 Hours: Temp Pulse Resp BP Pulse Ox 97.6 F 87 18 156/91 H 98 11/27/21 07:30 11/27/21 07:30 11/27/21 07:01 11/27/21 07:30 11/26/21 17:00 Laboratory Results - last 24 hr 11/27/21 06:25: Hgb 10.1 L, Hct 32.1 L I & O for Last 24 hours: Intake & Output 11/24/21 11/25/21 11/26/21 11/27/21 11:59 11:59 11:59 11:59 Intake Total 1200 / 1200 0 / 0 Output Total 200 / 200 Balance 1000 / 1000 0 / 0 Weight 222 lb Microbiology Reports for the Last 24 Hours: Microbiology 11/25/21 18:10 Urine,Clean Catch Urine Culture - Preliminary - Constitutional no acute distress - *Routine HEENT Exam Head: Present: normocephalic Eye: Present: EOMI, PERRL ENT: Present: mucous membranes moist Assessment and Plan (1) 37 weeks gestation of Status: Acute Category: Medical Code(s): Z3A.37 - 37 weeks gestation of (2) Chronic hypertension with superimposed preeclampsia Status: Acute Category: Medical Code(s): O11.9 - Pre-existing hypertension with pre-eclampsia, unspecified trimester (3) Rubella non-immune status, antepartum Status: Acute Category: Medical Code(s): O09.899 - Supervision of other high risk pregnancies, unspecified trimester; Z28.39 - Other underimmunization status (4) Migraines Status: Acute Qualifiers: Migraine type: unspecified Status migrainosus presence: without status migrainosus Intractability: intractable Qualified Code(s): G43.919 - Migraine, unspecified, intractable, without status migrainosus Category: Medical Code(s): G43.909 - Migraine, unspecified, not intractable, without status migrainosus (5) Anxiety Status: Acute Category: Medical Code(s): F41.9 - Anxiety disorder, unspecified - Assessment and plan all Dx Assessment and Plan for all problems:: She is doing well this morning. She is 1 day post section. Her pain is well controlled. Her hemoglobin is stable. Her blood pressure is stable. We will plan to send her home tomorrow.
[2021-11-27 22:44] VITALS: RESP 18
--- NOTE | 2021-11-28 08:29 | HMH.DCSUM ---
General - General Admission date:: 11/25/21 Discharge date: 11/28/21 HPI HPI: She is a 31-year-old 3 para 2 at 37 weeks gestational age. She came in with increased blood pressure and vision changes. As result of that her labor was induced. Hospital Course Hospital Course: Mrs Elsie Tapia is a 31 yo at 37w0d, based on first trimester ultrasound, who presents to [facility] for regular contractions, headache and vision changes. She states headache started last night and was worse this morning. She took Tylenol this morning with no relief. She reports seeing spots. She states contractions started about 2 hours ago and have increased in frequency. Reports good movement. Denies leakage of fluid and vaginal bleeding. On admission cervical exam was 2/40/-3. Amniotomy was performed with clear fluid noted. She progressed to 4-5 cm dilated. At 2300 on 11/25/21 cervix was 4-5/70-2 per RN. Pitocin was started and reached 15 mu. She got an epidural. Repeat cervical exam by physician was 4/50/-2. heart tracing was category 1, reactive. IUPC was inserted and contractions monitored for 1 hour. Adequate MVU noted. strip transitioned to category 2 with intermittent variable decelerations. Cervical exam unchanged. Decision was made to proceed with primary secondary to failure to progress. She delivered a liveborn female child at 10:16 AM on the morning of November 26, 2021. The baby weighed 6 pounds 5 ounces and was 19-1/2 inches long. She had Apgars of 9 at 1 minute and 9 at 5 minutes. She has done well and has remained afebrile throughout her hospitalization. She is eating and drinking and ambulating. She is breast-feeding and bottlefeeding. Her lochia is normal. Her blood pressures have remained stable throughout her hospitalization. She has had a couple of episodes of acute anxiety. She has a history of this. She is discharged home to follow-up with me in approximately 2 weeks time. She will continue with her vitamins and iron. She was given a prescription for Percocet 5/325 number 12 tablets. She will continue with her Vistaril at home. She was given the usual instructions with respect to limiting her activity, driving and sexual activity. She was given instructions with respect to wound care. Her condition on discharge is stable and improved. Rhogam Administration: Not Indicated Objective Vital signs: Temp Pulse Resp BP Pulse Ox 97.6 F 87 18 156/91 H 98 11/27/21 07:30 11/27/21 07:30 11/27/21 22:44 11/27/21 07:30 11/26/21 17:00 no acute distress - *Routine HEENT Exam Head: Present: normocephalic Eye: Present: EOMI, PERRL ENT: Present: mucous membranes moist DS: Diagnosis - Discharge Diagnosis (1) 37 weeks gestation of Status: Acute (2) Chronic hypertension with superimposed preeclampsia Status: Acute (3) Rubella non-immune status, antepartum Status: Acute (4) Migraines Status: Acute (5) Anxiety Status: Acute Discharge Plan - Patient Discharge Instructions ACTIVITY: No heavy lifting DIET: continue same diet Additional Instructions: Nothing in the vagina for 6 weeks No tub baths/driving until released Drink plenty of fluids No heavy lifting Patient Instructions: Depression, Hemorrhage, DI for , DI for Pre-eclampsia, [facility] Post Discharge Instructions, Preventing the Spread of Coronavirus Discharge Instructions - Follow up Plan Follow up with: Gino Toscano MD [Staff Physician] - Disposition: Home, Self-Care Condition at discharge:: Stable Home Medications: Home Medications Medication Instructions Recorded Confirmed Type vit 122-ferrous fumarate 1 tab PO DAILY 06/07/21 11/26/21 History 27 mg iron-folic acid 800 mcg tablet jvimbkpbvi-[id number]-bbdudznh 1 cap PO Q12HP PRN #20 cap 11/23/21 11/26/21 Rx 50 mg-300
== END 2021-11-28 12:01 | disposition home or self-care (01) | DRG 788 ==
LOC: OBOUT 19:00 → OB 19:00
PROVIDERS: Admitting Provider Obstetrics & Gynecology; PCP Internal Medicine; Visit Provider Obstetrics & Gynecology
PROC: 10D00Z1 Extraction of Products of Conception, Low, Open Approach (ICD-10-PCS; CPT 59514; principal; 2021-11-26 10:00)
DX: O11.4 Pre-existing hypertension with pre-eclampsia, complicating childbirth (principal); Z3A.37 37 weeks gestation of pregnancy; Z37.0 Single live birth; O76 Abnormality in fetal heart rate and rhythm complicating labor and delivery; F41.9 Anxiety disorder, unspecified; O62.0 Primary inadequate contractions; O99.344 Other mental disorders complicating childbirth
CPT/HCPCS: 59514; 36415; 59025; 80053; 80305; 81001; 82575; 84155; 85007; 85014; 85018; 85025; 86850; 87086; 88307; 94761; C1758; C9290; C9803; G0283; J2405; J2505; U0003; U0005

== ENCOUNTER 2021-11-30 18:46 | Outpatient (CLI) | payer MEDICAID, SELFPAY ==
[2021-11-30 19:05] VITALS: BMI 40.9
[2021-11-30 19:20] VITALS: BP 144/79; PULSE 79; RESP 18; TEMP 36.8; O2SAT 99; BMI 40.9
--- NOTE | 2021-11-30 19:37 | PC.NURSE ---
1900: PT TO FLOOR AT THIS TIME, TO ROOM 273. 19:05: PT C/O WEAKNESS AND COHEN. V/S TAKEN. PT STATES SHE HAS STOPPED TAKING LABETALOL AT THIS TIME. 19:10: [employer] OPERATOR MD CORNEJO NOTIFIED OF PT SYMPTOMS AND C/O. CLEMENTE ORDERS TO HAVE PT RESUME LABETALOL DIRECTED AND FOLLOW UP WITH PHILL ON SATURDAY, IF NEEDED BEFORE THEN SEE BEFORE. 19:15: PT UPDATED ON POC PER DR CORNEJO, V/U. THIS NURSE TELLS PT THAT I WILL GET D/C PAPERS READY AND SHE WILL BE3 GOOS TO GO. 19:30: PT LEFT FLOOR AT THIS TIME WITHOUT SIGNING PAPERWORK. WILL COMPLETE INCIDENT REPORT FOR LEAVING AMA.
== END 2021-11-30 19:30 | disposition home or self-care (01) ==
LOC: OBOUT 19:02 → OB 19:03
PROVIDERS: PCP Obstetrics & Gynecology; Visit Provider Obstetrics & Gynecology
DX: G43.919 Migraine, unspecified, intractable, without status migrainosus (principal)

== ENCOUNTER 2022-10-24 12:59 | Emergency (ER) | payer OTHER, SELFPAY ==
[2022-10-24] VITALS (9 sets, daily range): BP systolic 116–155; BP diastolic 61–91; PULSE 85–103; RESP 16–17; TEMP 36.7–36.8; O2SAT 95–97; BMI 27.4
--- NOTE | 2022-10-24 13:01 | ECG_ITS ---
APPROVED REPORT Exam: Resting ECG HR:99 bpm ECG Measurements Heart Rate 99 AXES PA 183 P 74 QRSd 85 QRS 58 QT 343 T 30 QTc 399 Conclusion SINUS RHYTHM NONSPECIFIC T-WAVE ABNORMALITY BORDERLINE ECG UNCONFIRMED REPORT Electronically signed by : Zay Bhatt MD 10/25/2022 21:16:07
--- NOTE | 2022-10-24 13:07 | XR_ITS ---
FINAL REPORT CLINICAL HISTORY: Chest pain COMPARISON: 11/10/2020 FINDINGS: A single portable view of the chest was obtained. The heart size and pulmonary vascularity are within normal limits. The mediastinum is within normal limits. No acute pulmonary abnormality is identified. The bony thorax is intact. IMPRESSION: No active cardiopulmonary disease. Reviewed, Interpreted and Dictated by Sean Ahn III, MD Transcribed by Ana Cox Authenticated and [facility]
--- NOTE | 2022-10-24 13:09 | HMH.EDCP ---
Discharge Plan Disposition Patient Disposition: Home, Self-Care Chief Complaint: Chest Pain Prescriptions Prescriptions: No Action sertraline 50 mg tablet 50 mg PO DAILY Qty: 30 11RF nifedipine 30 mg tablet extended release 24hr See Rx Instructions .ROUTE .COMPLEX Qty: 30 5RF Dose Instruction: TAKE 1 TABLET BY MOUTH DAILY Rx Instructions: TAKE 1 TABLET BY MOUTH DAILY hydroxyzine pamoate 25 mg capsule See Rx Instructions .ROUTE .COMPLEX Qty: 90 0RF Dose Instruction: TAKE 1 CAPSULE BY MOUTH THREE TIMES DAILY Rx Instructions: TAKE 1 CAPSULE BY MOUTH THREE TIMES DAILY labetalol 100 MG tablet 100 mg PO BID Referrals Follow up/Referrals: Kevin Terrell MD [Primary Care Provider] - See instructions Clinical Impressions Clinical Impression: Atypical chest pain Discharge ED Provider: Saqib Dewitt Chest Pain HPI General Chief Complaint: Chest Pain Stated Complaint: CP Time Seen by Provider: 10/24/22 13:01 History of Present Illness HPI narrative: 32-year-old white female presents with burning in her midsternal area all morning. She is taken some Pepto-Bismol and another GI medicine without resolution of her pain. Patient has had heartburn but nothing quite like this. She came to the emergency room for evaluation. Her medical allergies none listed medical problems include hypertension Related Data Home Medications Medication Instructions Recorded Confirmed labetalol 100 mg tablet 100 mg PO BID Headache 11/26/21 02/19/22 Previous Rx's Medication Instructions Recorded nifedipine 30 mg tablet,extended See Rx Instructions .Route 02/12/22 release 24 hr .COMPLEX #30 tabs sertraline 50 mg tablet 50 mg PO DAILY #30 tabs 02/19/22 hydroxyzine pamoate 25 mg capsule See Rx Instructions .Route 05/31/22 .COMPLEX #90 caps Allergies Allergy/AdvReac Type Severity Reaction Status Date / Time No Known Allergies Allergy Verified 02/19/22 14:21 [facility] Disclaimer: The information contained in this section may have been updated after the patient was seen, as this information can be updated by other users. Social History Smoking Status: Never smoker alcohol intake: never substance use type: denies use current occupational status: employed Travel in the last 8 weeks: None household members: children housing: house ROS Obtained: Yes All systems reviewed & no additional complaints except as documented Physical Exam General General appearance: alert and in no apparent distress Head Head exam: atraumatic and normocephalic Eye Eye exam: Present normal appearance, PERRL and EOMI Neck Neck exam: Present normal inspection Respiratory Respiratory exam: Present normal lung sounds bilaterally; Absent respiratory distress Cardiovascular Cardiovascular exam: Present regular rate and normal rhythm Abdominal Exam Abdominal exam: Present soft; Absent tenderness Extremities Exam Extremities exam: Present normal inspection and full ROM Neurological Exam Neurological exam: Present alert, oriented X3 and CN II-XII intact Medical Decision Making Medical Records MR Comment: 32-year-old white female presented with burning in her midsternal area since this morning. The patient reports she has been taking itok-pzj-xzvsvrm omeprazole for just a little over a week and has had a history of heartburn in the past. Her evaluations in the emergency department have included EKG chest x-ray CBC CMP troponin I which reveal no evidence of cardiac pathology. Her creatinine is slightly elevated at 1.2 and we have encouraged that she have that rechecked at her [facility] [employer] or primary care's follow-up visit. The patient is given GI cocktail with some relief but not resolution. She subsequently given Protonix and is resting comfortably. We have answered her questions and she is to follow-up with her primary care. Porfirio Morel
[2022-10-24 13:22] LABS: Basophils % 0.3 % (0.1-2.0); Eosinophils # 0.3 K/mm3 (0.0-0.4); Hematocrit 41.3 % (37.0-47.0); Hemoglobin 13.4 g/dL (12.2-16.2); Lymphocytes # 1.2 K/mm3 (0.7-4.5); Lymphocytes % 9.8 % (10-50); Mean Corpuscular HGB Conc 32.5 g/dL (31.8-35.4); Mean Corpuscular Hemoglobin 27.1 pg (27.0-31.2); Mean Corpuscular Volume 83.3 fl (81-99); Mean Platelet Volume 8.4 fl (7.4-10.4); Monocytes # 0.5 K/mm3 (0.1-1.0); Monocytes % 4.3 % (1.7-9.3); Neutrophils # 10.5 K/mm3 (1.8-7.8); Neutrophils % 83.5 % (37.0-80.0); Platelet Count 289 K/mm3 (142-424); Red Blood Count 4.96 M/mm3 (4.20-5.40); Red Cell Distribution Width 14.5 % (11.5-17.5); White Blood Count 12.6 K/mm3 (4.8-10.8)
[2022-10-24 13:34] LABS: Alanine Aminotransferase 32 U/L (12-78); Albumin Level 4.4 g/dl (3.5-5.0); Albumin/Globulin Ratio 1.5 (1.1-1.8); Alkaline Phosphatase 65 U/L (38-126); Anion Gap 12.2 mEq/L (5-15); Aspartate Amino Transferase 31 U/L (14-36); Bilirubin,Total 0.4 mg/dl (0.2-1.3); Blood Urea Nitrogen 13 mg/dl (7-17); Calcium 9.1 mg/dl (8.4-10.2); Carbon Dioxide 24 mmol/L (22.0-30.0); Chloride 107 mmol/L (98-107); Creatinine Clearance Estimated 78 mL/min (50-200); Estimated Glomerular Filt Rate 52 ml/min (>60); GFR (African American) 63 ML/MIN (>60); Glucose 119 mg/dl (74-100); Potassium 4.2 mmoL/L (3.5-5.1); Sodium 139 mmol/L (136-145); Total Protein,Serum 7.4 g/dl (6.3-8.2)
[2022-10-24 13:54] LABS: Troponin I < 0.01 ng/ml (0.00-0.034)
== END 2022-10-24 16:32 | disposition home or self-care (01) ==
PROVIDERS: Emergency Provider Emergency Medicine; PCP Internal Medicine
DX: R07.89 Other chest pain (principal); I10 Essential (primary) hypertension; K21.9 Gastro-esophageal reflux disease without esophagitis
CPT/HCPCS: 71045; 80053; 84484; 85025; 93005; 96374; 99284; 99285